=== PATIENT | female | born 1985 | race African-American/Black ===

== ENCOUNTER 2023-08-27 11:47 | Outpatient (CLI) | payer OTHER ==
[~2023-08-27] VITALS: Ht 177.8 cm; Wt 93.7 kg
[2023-08-27] MEDS ORDERED: PRENTAB9 PO (11:54)
== END 2023-08-27 13:25 | disposition home or self-care (01) ==
LOC: M LDO 11:47
PROVIDERS: ATTEND Advanced Practice Midwife
DX: O26.892 Other specified pregnancy related conditions, second trimester (principal); R25.2 Cramp and spasm; O36.8120 Decreased fetal movements, second trimester, not applicable or unspecified; O32.1XX0 Maternal care for breech presentation, not applicable or unspecified; Z3A.22 22 weeks gestation of pregnancy
CPT/HCPCS: 59025; 76815; G0463

== ENCOUNTER 2023-09-17 17:30 | Emergency (ER) | payer OTHER ==
[~2023-09-17] VITALS: Ht 177.8 cm; Wt 96.8 kg
[~2023-09-17 17:30] MED LIST: PRENTAB9 PO
[2023-09-17 17:34] VITALS: TEMP 98.3
[2023-09-17] MEDS ORDERED: ISOVUE-370 76% 100ML VIAL As Ordered ONE (18:11)
[2023-09-17 18:24] LABS: BASO % 0.2 % (0.0-1.0); EOS % 0.5 % (0.0-3.0); HEMOGLOBIN 12.7 g/dl (12.0-15.5); LYMPH # 1.9 10^3/uL (1.5-5.0); LYMPH % 22.7 % (24.0-44.0); MEAN CORPUSCULAR HEMOGLOBIN 29.8 pg (27.0-33.0); MEAN CORPUSCULAR HGB CONC 32.6 g/dl (32.0-36.5); MEAN CORPUSCULAR VOLUME 91.5 fl (80.0-96.0); MONO # 0.7 10^3/uL (0.0-0.8); MONO % 8.3 % (2.0-8.0); NEUTROPHILS # 5.6 10^3/uL (1.5-8.5); NEUTROPHILS % 67.8 % (36.0-66.0); PLATELET COUNT, AUTOMATED 207 10^3/uL (150-450); RED BLOOD COUNT 4.26 10^6/uL (4.00-5.40); WHITE BLOOD COUNT 8.2 10^3/uL (4.0-10.0)
[2023-09-17 18:43] LABS: INR 1.09; PARTIAL THROMBOPLASTIN TIME 27.7 SECONDS (24.8-34.2); PROTHROMBIN TIME 13.8 SECONDS (12.5-14.5)
[2023-09-17 18:45] VITALS: BP 101/76
[2023-09-17 18:55] LABS: ALBUMIN 3.1 G/DL (3.2-5.2); ALKALINE PHOSPHATASE 50 U/L (46-116); ALT/SGPT 14 U/L (7.0-40); AST/SGOT 25 U/L (<34); BILIRUBIN,TOTAL 0.5 MG/DL (0.3-1.2); BLOOD UREA NITROGEN 7 MG/DL (9-23); CALCIUM LEVEL 9.1 MG/DL (8.5-10.1); CARBON DIOXIDE LEVEL 27 MMOL/L (20-31); CHLORIDE LEVEL 105 MMOL/L (98-107); CREATININE FOR GFR 0.52 MG/DL (0.55-1.30); GLOMERULAR FILTRATION RATE > 60.0 (>60); GLUCOSE, FASTING 79 MG/DL (60-100); MAGNESIUM LEVEL 1.7 MG/DL (1.8-2.4); SODIUM LEVEL 136 MMOL/L (136-145); TOTAL PROTEIN 7.2 G/DL (5.7-8.2)
[2023-09-17 18:58] LABS: HCG, SERUM QUALITATIVE POSITIVE (NEGATIVE)
[2023-09-17 19:04] LABS: AMPHETAMINES LEVEL URINE NEGATIVE (NEGATIVE); BARBITURATES URINE NEGATIVE (NEGATIVE); BENZODIAZEPINES URINE NEGATIVE (NEGATIVE); CANNABINOIDS URINE NEGATIVE (NEGATIVE); COCAINE METABOLITE URINE NEGATIVE (NEGATIVE); METHADONE URINE NEGATIVE (NEGATIVE); OPIATES URINE NEGATIVE (NEGATIVE); PHENCYCLIDINE URINE NEGATIVE (NEGATIVE)
[2023-09-17 19:15] VITALS: O2SAT 99
== END 2023-09-17 20:54 | disposition left against medical advice (07) ==
LOC: M ED 17:30
DX: O99.352 Diseases of the nervous system complicating pregnancy, second trimester (principal); Z53.9 Procedure and treatment not carried out, unspecified reason; Z3A.26 26 weeks gestation of pregnancy; O23.42 Unspecified infection of urinary tract in pregnancy, second trimester
CPT/HCPCS: 70450; 70496; 70498; 70551; 71045; 80047; 80053; 80307; 81001; 83735; 84703; 85025; 85610; 85730; 87086; 93005; 93041; 94760; 99284; Q9967

== ENCOUNTER 2024-10-15 08:51 | Emergency (ER) | payer OTHER ==
[~2024-10-15] VITALS: Ht 172.7 cm; Wt 99.1 kg
[2024-10-15] MEDS ORDERED: DULO1CAP4 (09:29)
[2024-10-15 11:22] VITALS: BP 110/58; TEMP 96.8; O2SAT 100
== END 2024-10-15 11:26 | disposition home or self-care (01) ==
LOC: M ED 08:51
DX: R05.9 Cough, unspecified (principal); B34.8 Other viral infections of unspecified site; Z79.899 Other long term (current) drug therapy